=== PATIENT | male | born 1995 | race Caucasian/White ===

== ENCOUNTER 2019-11-25 22:07 | Emergency (ER) | payer BC ==
[~2019-11-25] VITALS: Ht 193 cm; Wt 122.5 kg
--- NOTE | 2019-11-25 22:12 | NUR ---
PT CAME TO ER BED 11 C/O BILATERAL KNEE PAIN. PT STATES THAT HE DRANK BEER AND TEQUILA BEFORE LEAVING HIS HOUSE. [employer] AT BEDSIDE. PT HAS A LACERATION ON THE RIGHT-SIDE ON FOREHEAD. AAOX2. NO SOB. BREATHING EVENLY AND UNLABORED. CONNECT TO MONITOR.
[2019-11-25] MEDS ORDERED: TDAP [DIPH/PERTUSSIS/TET] 0.5 ML VIAL IM ONE ×2 (23:00→23:09)
[2019-11-25] MEDS ORDERED: LIDOCAINE 1%-EPI 1:100,000 20 ML VIAL ONE (23:04)
[2019-11-25] MEDS ORDERED: LIDOCAINE 1%-EPI 1:100,000 20 ML VIAL TP ONE (23:30)
--- NOTE | 2019-11-25 23:50 | NUR ---
XRAY AT BEDSIDE
[2019-11-26] MEDS ORDERED: diphenhydrAMINE HCL 50 MG/ML VIAL IM ONE (02:00)
[2019-11-26] MEDS ORDERED: HALOPERIDOL LACTATE INJ 5 MG/ML VIAL IM ONE (02:00)
[2019-11-26 02:08] LABS: CALCIUM, SERUM 9.5 mg/dL (8.5-10.1); CARBON DIOXIDE 27 mmol/L (21-32); CHLORIDE 105 mmol/L (98-107); CREATININE 1.1 mg/dL (0.6-1.3); GLUCOSE 99 mg/dL (74-106); POTASSIUM 3.7 mmol/L (3.5-5.1); SODIUM SERUM 142 mmol/L (136-145); UREA NITROGEN, BLOOD 20 mg/dL (7-18)
[2019-11-26 02:14] LABS: ALANINE AMINOTRANSFERASE 114 U/L (12-78); ALBUMIN 4.4 g/dL (3.4-5.0); ALCOHOL, BLOOD < 3 mg/dL (0-0); ALKALINE PHOSPHATASE 88 U/L (46-116); ASPARTATE AMINOTRANSFERASE 55 U/L (15-37); BASOPHILS # (AUTO) 0.1 /CMM (0.0-0.2); BASOPHILS % (AUTO) 0.4 % (0.0-2.0); BILIRUBIN,DIRECT 0.1 mg/dL (0.0-0.2); BILIRUBIN,TOTAL 0.5 mg/dL (0.2-1.0); EOSINOPHILS % (AUTO) 2.6 % (0.0-6.0); HEMATOCRIT 42 % (39-51); LYMPHOCYTES # (AUTO) 3.7 /CMM (0.8-4.8); LYMPHOCYTES % (AUTO) 30.7 % (20.0-44.0); MEAN CORPUSCULAR HGB CONC 34 g/dl (31.0-36.0); MEAN CORPUSCULAR VOLUME 88 fL (80-96); MONOCYTES # (AUTO) 0.8 /CMM (0.1-1.30); MONOCYTES % (AUTO) 6.5 % (2.0-12.0); NEUTROPHILS # (AUTO) 7.2 /CMM (1.8-8.9); NEUTROPHILS % (AUTO) 59.8 % (43.0-81.0); PLATELET COUNT (AUTO) 247 /CMM (150-450); RED BLOOD CELL COUNT(AUTO) 4.78 MIL/uL (4.5-6.0); TOTAL PROTEIN, SERUM 8.2 g/dL (6.4-8.2); WHITE BLOOD COUNT (AUTO) 12.1 K/uL (4.3-11.0)
--- NOTE | 2019-11-26 03:00 | NUR ---
DEV STATES THAT THEY ARE GOING TO LEAVE. DEV OFFICER STATES THAT BECAUSE HE IS JUST HERE FOR A FELONY, HE IS NOT GOING TO BE TAKEN RIGHT NOW WITH THE [employer] OFFICERS. PT IS RELEASED BY DEV. PT IS NOT AMBULATORY. TRAE EVALUATED PATIENT. PATIENT IS NOT FIT TO BE DISCHARGE AT THE MOMENT. WILL CONTINUE TO MONITOR PATIENT.
[2019-11-26 03:02] LABS: SALICYLATE 3.9 mg/dL (2.8-20.0)
--- NOTE | 2019-11-26 05:50 | NUR ---
PATIENT IS ASLEEP. EASILY AROUSED THROUGH TACTILE AND VERBAL STIMULI. BREATHING EVENLY AND UNLABORED ON ROOM AIR. CONNECTED TO A MONITOR. SITTER AT BEDSIDE. WILL CONTINUE TO MONITOR PATIENT.
--- NOTE | 2019-11-26 08:34 | NUR ---
T SLEEPING VSS CONT TO MONITOR
--- NOTE | 2019-11-26 10:45 | NUR ---
PT AWAKE ASKING FOR POS TOLERATING WELL AWAITING EVALUATION BY ER PROVIDER.
--- NOTE | 2019-11-26 11:06 | NUR ---
Patient discharged to home in stable condition. Written and verbal after care instructions given. Patient verbalizes understanding of instruction.PT. VERBALIZED UNDERSTANDING OF AFTERCARE INSTRUCTIONS.
[2019-11-26 11:07] VITALS: BP 119/67
== END 2019-11-26 11:08 | disposition home or self-care (01) ==
LOC: ER 22:28
DX: S01.81XA Laceration without foreign body of other part of head, initial encounter (principal); S93.491A Sprain of other ligament of right ankle, initial encounter; S80.02XA Contusion of left knee, initial encounter; S80.01XA Contusion of right knee, initial encounter; F19.10 Other psychoactive substance abuse, uncomplicated; F41.9 Anxiety disorder, unspecified; V49.49XA Driver injured in collision with other motor vehicles in traffic accident, initial encounter; Y93.89 Activity, other specified; Y92.413 State road as the place of occurrence of the external cause; Y99.8 Other external cause status
CPT/HCPCS: 12013; 36415; 70450; 71045; 72125; 73562; 73564 ×2; 73610; 80048; 80076; 80307; 80329; 85025; 90471; 90715; 99284; A6403; G0480; J3490